=== PATIENT | female | born 1975 | race Caucasian/White ===

== ENCOUNTER 2018-02-02 17:35 | Emergency (ER) | payer OTHER ==
[~2018-02-02] VITALS: Ht 160 cm; Wt 64.0 kg
[2018-02-02 17:40] VITALS: Ht 160 cm; Wt 64.0 kg
[2018-02-02 23:02] VITALS: BP 111/60
== END 2018-02-02 23:00 | disposition home or self-care (01) ==
LOC: ED 17:35
DX: G43.909 Migraine, unspecified, not intractable, without status migrainosus (principal); R20.2 Paresthesia of skin; M79.1 Myalgia
CPT/HCPCS: J1885; J8597; Q0163

== ENCOUNTER 2018-12-22 17:48 | Emergency (ER) | payer OTHER ==
[~2018-12-22] VITALS: Ht 160 cm; Wt 64.0 kg
[2018-12-22 17:52] VITALS: Ht 160 cm; Wt 64.0 kg
[2018-12-22 18:34] LABS: UA SPECIFIC GRAVITY 1.015 (1.005-1.035); microscopic required? YES; urine erythrocyte 3+ (NEGATIVE)
[2018-12-22 19:25] VITALS: BP 120/79
== END 2018-12-22 19:25 | disposition home or self-care (01) ==
LOC: ED 17:48
PROVIDERS: Emergency Medicine
DX: N39.0 Urinary tract infection, site not specified (principal); G43.909 Migraine, unspecified, not intractable, without status migrainosus; Z88.8 Allergy status to other drugs, medicaments and biological substances; Z88.5 Allergy status to narcotic agent
CPT/HCPCS: J1885; Q0162

== ENCOUNTER 2019-01-04 22:26 | Emergency (ER) | payer OTHER ==
[~2019-01-04] VITALS: Ht 160 cm; Wt 66.2 kg
[2019-01-04 22:30] VITALS: Ht 160 cm; Wt 66.2 kg
[2019-01-05 00:20] LABS: BASOPHIL % 0.3 % (0-2); PLATELET COUNT 236 x10^3mcL (130-400); RED CELL DISTRIBUTION WIDTH 13.9 % (11.5-14.5)
[2019-01-05 00:36] LABS: UA SPECIFIC GRAVITY 1.025 (1.005-1.035); microscopic required? YES; urine erythrocyte TRACE (NEGATIVE)
[2019-01-05 00:44] LABS: ALBUMIN 3.8 g/dL (3.4-5.0); ALKALINE PHOSPHATASE 63 U/L (46-116); ALT/SGPT 21 U/L (14-59); AST/SGOT 17 U/L (15-37); BILIRUBIN TOTAL 0.3 mg/dL (0.20-1.00); CALCIUM 8.6 mg/dL (8.5-10.1); CARBON DIOXIDE 23.5 mmol/L (21-32); CHLORIDE SERUM 107 mmol/L (98-107); CREATININE SERUM 0.8 mg/dL (0.6-1.0); GFR1 > 60 mL/min; GLUCOSE SERUM 91 mg/dL (74-106); POTASSIUM SERUM 4.3 mmol/L (3.5-5.1); SODIUM SERUM 140 mmol/L (136-145); TOTAL PROTEIN, SERUM 7.5 g/dL (6.4-8.2)
[2019-01-05 02:35] VITALS: BP 121/71
== END 2019-01-05 02:35 | disposition home or self-care (01) ==
LOC: ED 22:26
PROVIDERS: Emergency Medicine
DX: R10.9 Unspecified abdominal pain (principal); R19.7 Diarrhea, unspecified; G43.909 Migraine, unspecified, not intractable, without status migrainosus; Z88.6 Allergy status to analgesic agent; Z88.5 Allergy status to narcotic agent
CPT/HCPCS: J2270; J2405; J7030